=== PATIENT | female | born 1975 | race Caucasian/White ===

== ENCOUNTER 2018-07-05 16:53 | Emergency (ER) | payer OTHER ==
[2018-07-05 17:04] VITALS: BP 151/70; PULSE 74; TEMP 98.7; BMI 32.9
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
== END 2018-07-05 17:34 | disposition home or self-care (01) ==
LOC: JERFT 16:53
DX: S16.1XXA Strain of muscle, fascia and tendon at neck level, initial encounter (principal); S39.012A Strain of muscle, fascia and tendon of lower back, initial encounter; S29.012A Strain of muscle and tendon of back wall of thorax, initial encounter; X58.XXXA Exposure to other specified factors, initial encounter; Y93.89 Activity, other specified; Y92.9 Unspecified place or not applicable
CPT/HCPCS: 99281-25